=== PATIENT | male | born 1950 | race Caucasian/White ===

== ENCOUNTER 2017-10-04 07:57 | Emergency (ER) | payer MEDICARE, OTHER ==
[~2017-10-04] VITALS: Ht 175.3 cm; Wt 68.0 kg
[2017-10-04] MEDS ORDERED: FLOMAX0.4 MG PO (08:05)
[2017-10-04 08:40] LABS: URINE BILIRUBIN NEGATIVE (Negative); URINE BLOOD NEGATIVE (Negative); URINE CLARITY CLEAR; URINE COLOR YELLOW; URINE GLUCOSE-RANDOM NEGATIVE (Negative); URINE KETONES NEGATIVE (Negative); URINE LEUKOCYTES-REFLEX NEGATIVE (Negative); URINE NITRITE-REFLEX NEGATIVE (Negative); URINE PROTEIN NEGATIVE (Negative); URINE UROBILINOGEN 0.2 E.U./dl (0.2-1.0)
[2017-10-04 08:54] LABS: ABSOLUTE BASOPHILS 0.1 thou/uL (0.0-0.2); ABSOLUTE EOSINOPHILS 0.4 thou/uL (0.0-0.7); ABSOLUTE LYMPHOCYTES 2.3 thou/uL (0.8-5.3); ABSOLUTE MONOCYTES 1.1 thou/uL (0.0-1.2); ABSOLUTE NEUTROPHILS 8.6 thou/uL (1.6-8.1); BASOPHILS 0.4 %; EOSINOPHILS 3.5 %; HEMATOCRIT 34.2 % (42.0-52.0); HEMOGLOBIN 10.9 gm/dL (14.0-18.0); LYMPHOCYTES 18.6 %; MCH 19.8 pg (26.0-34.0); MCHC 31.9 g/dL (28.0-37.0); MCV 62.1 fL (80.0-100.0); MONOCYTES 8.5 %; MPV 9.1 fl. (7.2-11.1); NUCLEATED RBCS 0 /100WBC; PLATELET COUNT* 241 thou/uL (150-400); RBC 5.51 mil/uL (4.50-6.00); RDW-CV 16.4 % (10.5-14.5); WBC 12.5 thou/uL (4.0-11.0)
[2017-10-04 09:07] LABS: CALCIUM 8.7 mg/dL (8.5-10.1); CREATININE 0.8 mg/dL (0.6-1.3)
[2017-10-04 09:12] LABS: ALBUMIN 3.7 g/dL (3.4-5.0); TOTAL BILIRUBIN 1.1 mg/dL (<0.1-1.0); TOTAL PROTEIN 7.2 g/dL (6.4-8.2)
[2017-10-04] MEDS ORDERED: ANTIVERT25 MG PO (09:29)
[2017-10-04 09:31] LABS: ANISOCYTOSIS 2+; HYPOCHROMASIA 2+
[2017-10-04 09:32] LABS: OVALOCYTES 1+; PLATELET ESTIMATE ADEQUATE; TEARDROPS 1+
[2017-10-04] MEDS ORDERED: NORCO 5-325 TA1 EACH PO (12:27)
[2017-10-04] MEDS ORDERED: NAPROSYN500 MG PO (12:27)
[2017-10-04 12:36] VITALS: BP 127/76
== END 2017-10-04 12:36 | disposition home or self-care (01) ==
LOC: M.ERS 07:57
PROVIDERS: Personal Emergency Response Attendant
DX: S20.219A Contusion of unspecified front wall of thorax, initial encounter (principal); N40.0 Benign prostatic hyperplasia without lower urinary tract symptoms; Z87.442 Personal history of urinary calculi; Z88.5 Allergy status to narcotic agent; X58.XXXA Exposure to other specified factors, initial encounter; Y93.89 Activity, other specified; Y92.89 Other specified places as the place of occurrence of the external cause; Y99.8 Other external cause status